=== PATIENT | male | born 1985 | race American Indian/Alaskan Native ===

== ENCOUNTER 2017-12-01 22:44 | Emergency (ER) | payer SELFPAY ==
--- NOTE | 2017-12-01 23:13 | ED PDOC ---
Arrival/HPI - General Historian: Patient - History of Present Illness Time/Duration: Prior to Arrival Symptom Onset: Gradual Symptom Course: Unchanged Activities at Onset: Rest - General Chief Complaint: High Blood Pressure Time Seen by Provider: 12/01/17 23:01 - History of Present Illness Narrative History of Present Illness (Text): 12/01/17 23:09 32 year old male, past medical history of hypertension, myocardial infarction ( 01/2017 - no PCI), congestive heart failure, presents to the emergency department accompanied by police for high blood pressure. Patient denies any change in vision or headache at this time. States his blood pressure normally runs high in the 180s and becomes symptomatic in the 220s. Patient has not followed up with a manager urology. Gets his medications from his primary medical doctor. Denies headache, dizziness, change in vision, tinnitus, shortness of breath, cough, nausea, vomiting, fever, chills, chest pain, palpitations, abdominal pain, or urinary symptoms. PMD: Dr. White ([facility]) Past Medical History - Provider Review Nursing Documentation Reviewed: Yes - Cardiac Hx Congestive Heart Failure: Yes Hx Hypertension: Yes - Pulmonary Hx Respiratory Disorders: No - Neurological Hx Neurological Disorder: No - HEENT Hx HEENT Disorder: No - Renal Hx Renal Disorder: No - Endocrine/Metabolic Hx Endocrine Disorders: No - Hematological/Oncological Hx Blood Disorders: No - Integumentary Hx Dermatological Disorder: No - Musculoskeletal/Rheumatological Hx Musculoskeletal Disorders: No - Gastrointestinal Hx Gastrointestinal Disorders: No - Genitourinary/Gynecological Hx Genitourinary Disorders: No - Psychiatric Hx Psychophysiologic Disorder: No (denies) Hx Substance Use: No - Anesthesia Hx Anesthesia: No (denies) Family/Social History - Physician Review Nursing Documentation Reviewed: Yes Family/Social History: No Known Family HX Smoking Status: Former Smoker Hx Alcohol Use: Yes Frequency of alcohol use: Few days per week Hx Substance Use: No Allergies/Home Meds Allergies/Adverse Reactions: Allergies No Known Allergies Allergy (Verified 12/01/17 22:54) Review of Systems - Physician Review All systems were reviewed & negative as marked: Yes - Review of Systems Constitutional: absent: Fevers Eyes: absent: Vision Changes ENT: absent: Hearing Changes, Tinnitus Respiratory: absent: SOB, Cough Cardiovascular: absent: Chest Pain, Palpitations Gastrointestinal: absent: Abdominal Pain, Nausea, Vomiting Genitourinary Male: absent: Dysuria, Hematuria Musculoskeletal: absent: Arthralgias Neurological: absent: Headache, Dizziness Endocrine: absent: Diaphoresis Physical Exam Vital Signs Reviewed: Yes Temperature: Afebrile Blood Pressure: Hypertensive Pulse: Regular Respiratory Rate: Normal Appearance: Positive for: Well-Appearing, Non-Toxic, Comfortable Pain Distress: None Mental Status: Positive for: Alert and Oriented X 3 - Systems Exam Head: Present: Atraumatic, Normocephalic Pupils: Present: PERRL Extroacular Muscles: Present: EOMI Mouth: Present: Moist Mucous Membranes Respiratory/Chest: Present: Clear to Auscultation, Good Air Exchange. No: Respiratory Distress, Accessory Muscle Use Cardiovascular: Present: Regular Rate and Rhythm, Normal S1, S2. No: Murmurs Abdomen: No: Tenderness, Distention, Peritoneal Signs Skin: Present: Warm, Dry Psychiatric: Present: Alert, Oriented x 3 Vital Signs Pulse Resp BP Pulse Ox 12/01/17 23:53 60 18 147/83 100 12/01/17 23:44 64 176/115 H 12/01/17 22:53 75 14 181/127 H 95 Medical Decision Making ED Course and Treatment: In agreement with resident note, which includes further HPI details. Patient was seen and evaluated with resident, came up with plan and treatment together. (Wale Ribeiro) 12/01/17 23:27 32M, PMH of CA, HTN, CHF, presents to the ED with elevated BP of 181/115. Patient going to long term once BP stabilizes. Labetalol 20 IV administered. EKG 66bpm, NSR with t wave abnormalities in leads I, aVL, and V6. 12/02/17 00:02 Patients BP now 147/83, stable. Patient has no complaints at this time, would like to go to long term so he can proceed to court in the morning. If symptoms return, please return to the ED. Patient verbalized understanding and agreement of treatment plan. Case reviewed and discussed with attending provider. (Gen Bentley) - Medication Orders Current Medication Orders: Discontinued Medications Labetalol HCl (Trandate) 20 mg IV STAT STA Stop: 12/01/17 23:15 Last Admin: 12/01/17 23:44 Dose: 20 mg eMAR Start Stop Document 12/01/17 23:44 AD (Rec: 12/01/17 23:45 AD [id number]) Intravenous Solution Start Date 12/01/17 Start Time 23:44 MAR Pulse and Blood Pressure Document 12/01/17 23:44 AD (Rec: 12/01/17 23:45 AD [id number]) Pulse Pulse Rate (60-90 beats/min) 64 Blood Pressure Blood Pressure (100/60-150/90 mm Hg) 176/115 Disposition/Present on Arrival - Present on Arrival Any Indicators Present on Arrival: No History of DVT/PE: No History of Uncontrolled Diabetes: No Urinary Catheter: No History of Decub. Ulcer: No History Surgical Site Infection Following: None - Disposition Have Diagnosis and Disposition been Completed?: Yes Disposition Time: 00:04 Patient Plan: Discharge - Disposition Diagnosis: Hypertension Disposition: HOME/ ROUTINE Condition: GOOD Discharge Instructions (ExitCare): High Blood Pressure (DC), Malignant Hypertension (DC), Controlling Your Blood Pressure Through Lifestyle Additional Instructions: Please follow up with your primary medical doctor, Dr. White, within 3-5 days. If symptoms worsen, please return to the emergency room. Forms: [employer] (I[place]ic)
[2017-12-01] MEDS ORDERED: Labetalol 5 mg/ml Inj 20ML IV STA (23:14)
[2017-12-01 23:54] VITALS: BP 147/83; PULSE 60; RESP 18; O2SAT 100
--- NOTE | 2017-12-02 16:13 | CARD ---
APPROVED REPORT Date of service: 12/01/2017 EKG Measurement Heart [id number] <Conclusion> Normal sinus rhythm Possible Left atrial enlargement Left axis deviation Left ventricular hypertrophy T wave abnormality, consider lateral ischemia Abnormal ECG
== END 2017-12-02 00:07 | disposition home or self-care (01) ==
LOC: ED 22:44
DX: I10 Essential (primary) hypertension (principal); I25.2 Old myocardial infarction; I50.9 Heart failure, unspecified